=== PATIENT | male | born 1985 | race Hispanic/Latino ===

== ENCOUNTER 2016-09-01 13:26 | Day surgery (SDC) | payer OTHER ==
[2016-09-01] VITALS (9 sets, daily range): BP systolic 119–141; BP diastolic 63–92; PULSE 74–105; RESP 14–18; O2SAT 95–98
[~2016-09-01] VITALS: Ht 172.7 cm; Wt 90.5 kg
[~2016-09-01 13:26] MED LIST: CYCL10TA9 PO; CeFAZolin 2 Gm/50 mL D5W IV Premix IV ONE; HYDR-4003 PO; Lactated Ringer's 1,000 ML IV ONE
[2016-09-01] MEDS ORDERED: Ondansetron 2 mg/mL 2 mL Inj ONE (13:27)
[2016-09-01] MEDS ORDERED: MetoCLOpramide 5 mg/mL 2 mL Inj ONE (13:27)
[2016-09-01] MEDS ORDERED: Ketamine 10 mg/mL 20 mL Inj ONE (13:27)
[2016-09-01] MEDS ORDERED: Propofol 10,000 mCg/mL 20 mL Inj ONE (13:27)
[2016-09-01] MEDS ORDERED: Dexamethasone 4 mg/mL Inj ONE (13:27)
[2016-09-01] MEDS ORDERED: Lactated Ringer's 1,000 ML IV ONE (14:00)
[2016-09-01] MEDS ORDERED: CeFAZolin 2 Gm/50 mL D5W Duplex Bag IV ONE (14:08)
[2016-09-01] MEDS ORDERED: Lactated Ringer's 500 ML IV PRN (16:24)
[2016-09-01] MEDS ORDERED: Lactated Ringer's 1,000 ML IV SCH (16:24)
--- NOTE | 2016-09-01 16:24 | PCM.HPANE ---
Patient Data Surgeon Admitting Provider: Attending Provider:Sanjana Stevenson MD Primary Care Physician:Blaek Other Provider:Rina Mccauley Anesthesia Reason for Visit Left Kidney Stone Ht/WT & BMI Height (Feet): 5 Height (Inches): 8 Weight (Kilograms): 90.5 Body Mass Index 30.00 Allergies Coded Allergies: No Known Allergies (Unverified , 09/01/16) Past Anesthesia History Anesthesia History: Denies:: Anesthesia Reactions, Malignant Hyperthermia Diabetes History Hx Diabetes?: No MRSA MRSA: No Medications Home Meds Incl Beta Abhi: No Reported Medications Hydrocodone-Acetaminophen 5-325 mg 1 Each Tablet1 Tablet PO Q4H PRN For Pain Ref 0 08/28/16 Cyclobenzaprine 10 Mg [id number] Mg PO HS PRN Spasm Ref 0 08/28/16 History History of ENT Problems?: No Hx of Heart Problems?: No Cardiovascular History: Denies:: Heart Murmur Hypertension Valvular Heart Disease Hx of Respiratory Problem?: No Respiratory History: Denies:: Use of C-PAP Machine Hx Neurologic Problems?: Yes Hx of GI Problems?: No Hx of Problems?: Yes Genitourinary History: Positive for:: Kidney Stones (LT KIDNEY SATONE=CURRENT PROBLEM C/OF HEMATURIA,LT FLANK PAIN) Male Hx: Denies:: Prostate Problems Scrotal Mass Testicular Surgery Skin History: Denies:: History Skin Disorders? Pressure Ulcers Hx Musculoskeletal Problems?: Yes Musculoskeletal History: Denies:: Back Injury (C/OF LOWER BACK PAIN) Hx of Psycho/Social Problems?: No Hx Surgeries?: No Hx Any Other Health Problems?: Yes Other History: Denies:: Cancer Endocrine Disease Hospitalization Thyroid Disease History Blood Transfusions: Denies:: Blood Transfusions Hx Diabetes: No Have You Smoked inLast 12 mo: YesApprox How Many Cigarettes/day: 1-2C/WEEKENDS Stop/Bang Treated for Sleep Apnea?: No Do You Have a CPAP Machine?: No S-Snoring: Do You Snore Loudly: No T-Tired: feel tired, fatigued: Yes O-Obsered: Observed not breath: No P-Blood Pressure: treated: No B- Body Mass Index > 35 kg/m2: No A- Age over 50: No N- Neck Large Circumference: No G- Gender Male: Yes NOLAN Total Score: 2 NOLAN Risk Assessment: Low Risk, <3 Yes Risk Assessment Category Category 1A: Patient has history of documented sleep apnea, and HAS NOT received any narcotic, sedative or anesthesia administration during this stay. Category 1B: Patient has history of documented sleep apnea, and HAS received any narcotic , sedative or anesthesia administration during this stay Category 2: Patient has SUSPECTED Obstructive Sleep Apnea, and HAS received any narcotic , sedative or anesthesia administration during this stay. Category 3: Patient has SUSPECTED Obstructive Sleep Apnea and HAS NOT received narcotic, sedative or anesthesia administration during this stay. Category 4: Outpatient in Procedural Areas with known sleep apnea or who screen positive for High Risk via the STOP/BANG questionnaire. Exam Exam Vital Signs Vital Signs Date Time Temp Pulse Resp B/P Pulse Ox O2 Delivery O2 Flow Rate FiO2 09/01/16 14:00 36.8 74 18 136/82 97 Room Air General Appearance: Oriented X3 HEENT/AIRWAY: MP 2 Lungs: Normal Air Movement Heart: Regular Rate/Rhythm Meds/Labs/Diagnostics Admission Meds Current Medications Lactated Ringer's (Lr) 1,000 ml @ ud STK-MED ONCE IV Last administered on t 14:00; Start 09/01/16 at 14:00; Stop 09/01/16 at 14:47; Status DC Plan Impression Patient chart reviewed, patient interviewed and anesthestic plan with risks, benefits, and alternatives discussed, and informed consent obtained. NPO Status: 2200 ASA Physical Status: ASA1 Normal Healthy Anesthetic Plan: GA Bene/Risks/Altern/Consents: Yes HP Complete Prior to Induction: Yes Olegario Neely MD Sep 01, 2016 16:24
[2016-09-01] MEDS ORDERED: EPHEDrine Sulfate 50 mg/mL Inj IVPUSH PRN (16:25)
[2016-09-01] MEDS ORDERED: Dexamethasone 4 mg/mL Inj IVPUSH PRN (16:25)
[2016-09-01] MEDS ORDERED: Phenylephrine 10,000 mCg/mL Inj IVPUSH PRN (16:25)
[2016-09-01] MEDS ORDERED: MetoCLOpramide 5 mg/mL 2 mL Inj IVPUSH PRN (16:25)
[2016-09-01] MEDS: fentaNYL-PF 50 mCg/mL 2 mL Inj IVPUSH PRN ×5 (18:05→20:00)
[2016-09-01] MEDS: HYDROmorphone 1 mg/mL Inj IVPUSH PRN ×4 (18:05→18:33)
[2016-09-01] MEDS: Ondansetron 2 mg/mL 2 mL Inj IVPUSH PRN ×2 (18:50→20:12)
[2016-09-01] MEDS: HYDROcodone-APAP 5-325 mg Tablet PO PRN ×2 (20:12→21:00)
--- NOTE | 2016-09-02 00:58 | OP ---
[address] [address] OPERATIVE REPORT PATIENT: RAKESH MILES : 1985 MR#: [id number] ADMIT: 09/01/2016 JOB ID: [id number] DATE OF SURGERY: 09/01/2016 PREOPERATIVE DIAGNOSIS(ES): Left urolithiasis. POSTOPERATIVE DIAGNOSIS(ES): Left urolithiasis. PROCEDURE PERFORMED: 1. Cystoscopy and left retrograde pyelogram. 2. Left ureteroscopy with laser lithotripsy and stone basketing. 3. Left ureteral stent placement. SURGEON: Sanjana Stevenson MD ELEVATOR ADJUSTER: None. FINDINGS: Two stones, one in the mid pole of the left kidney as well as the left distal ureter. ANESTHESIA: General. ESTIMATED BLOOD LOSS: Less than 5 mL. DRAINS: 6 x 26 double-J ureteral stent to the left ureter. SPECIMENS: Left ureteral stone. COMPLICATIONS: None. CONDITION: Stable. INDICATION FOR PROCEDURE: The patient is a 31-year-old gentleman with gross hematuria and stones. He wished to move forward with definitive management of the stones. DESCRIPTION OF PROCEDURE: After informed consent was obtained, the patient was taken to the operating room. A time-out was performed identifying correct patient, surgical site, and procedure. General anesthesia was smoothly induced. He was given intravenous antibiotics prior to the start of the procedure. He was placed in the lithotomy position. All pressure points were identified and appropriately padded. His genitals were then prepped and draped in the usual sterile fashion. It was attempted to cannulate the patient's urethral meatus. It was somewhat tight. [place] were used to dilate just the meatus, and it was atraumatic without any bleeding. It was dilated to 26-[place] in succession. This allowed for the 22-[place] rigid cystoscope to be applied to the urethra and advanced to the bladder. The bladder was drained. Left ureteral orifice was cannulated with a 5-[place] open-ended [place] and a retrograde pyelogram was performed. It appeared normal. Two Sensor tip wires were then advanced to the renal pelvis as seen under fluoroscopy. Semi-rigid ureteroscopy then commenced. There was no stone in the distal ureter. Next, a 12/14 access sheath, 28 cm long was loaded over one of the wires and advanced to the mid ureter. Flexible ureteroscopy then commenced. Retrograde pyelogram was again performed. Every calyx was inspected multiple times. There was one stone. A 273 micron laser fiber wire was used to break the stone into small pieces. The stone was very small to begin with. The ureteroscope was then brought down to the level of the access sheath and there was a ureteral stone seen there. A 0-tip nitinol basket was used to basket this stone. It was brought out in its entirety and passed off the table for stone analysis. The ureteroscope was then brought down in tandem with the access sheath, and the ureter appeared normal. The remaining Sensor tip wire was then backloaded in the cystoscope and a 6 x 26 double-J ureteral stent was loaded over it and advanced to the renal pelvis seen under fluoroscopy. The wire was then removed, leaving a nice coil in the patient's bladder as seen under direct vision. The patient was then reversed from general anesthesia and taken to the PACU in good and stable condition. GONZALO
--- NOTE | 2016-09-02 07:52 | PCM.ANEP2 ---
Post Anesthesia Evaluation ASA/CMS Post Anesthesia VS in Patient's Normal Range?: Yes Resp Stable; Airway Patent?: Yes CV Function & Hydration Stable: Yes Mental Status Recovered?: Yes Pain control Satisfactory?: Yes N/V Control Satisfactory?: Yes Olegario Neely MD Sep 02, 2016 07:52
--- NOTE | 2016-09-02 07:52 | PCM.ANEP1 ---
Post Anesthesia Phase 1 PACU Phase 1 Assessment Anesthetic Administered: GA Level of Alertness: Awake, talking Pain: No Nausea or Vomiting: No Airway Device: Oralpharangeal Airway Oxygen Delivery: Room Air Lungs: Normal Air Movement Olegario Neely MD Sep 02, 2016 07:52
== END 2016-09-01 23:59 | disposition home or self-care (01) ==
LOC: SAS 13:26
PROVIDERS: ATTEND Urology
DX: N20.0 Calculus of kidney (principal); R31.9 Hematuria, unspecified
CPT/HCPCS: 52356; 74420; C2617; J0690; J1100; J1170; J2405; J2765; J7120; Q9967